=== PATIENT | male | born 1955 | race Caucasian/White ===

== ENCOUNTER 2017-02-03 18:42 | Inpatient (IN) ==
[2017-02-03] MEDS ORDERED: Ipratropium/Albuterol Neb 3 ML IH ONE (19:09)
[2017-02-03 19:21] LABS: Basophils # 0.1 K/mcL (0.0-0.2); Basophils % 0.4 %; Eosinophils # 0.3 K/mcL (0.0-0.6); Eosinophils % 1.8 %; Hemoglobin 15.7 g/dL (12.9-16.9); Immature Granulocytes % 0.8 % (0-4); Lymphocytes # 2.4 K/mcL (0.6-4.6); Lymphocytes % 15.7 %; Mean Corpuscular HGB Conc 33.4 g/dL (31.6-35.5); Mean Corpuscular Hemoglobin 30.3 pg (28.0-33.3); Mean Corpuscular Volume 90.6 fL (83.0-100.0); Mean Platelet Volume 10.1 fL (9.4-12.4); Monocytes # 0.9 K/mcL (0.0-1.3); Monocytes % 6.3 %; Neutrophils # 11.3 K/mcL (1.6-8.9); Platelet Count 218 K/mcL (140-400); Red Blood Count 5.19 M/mcL (4.19-5.50); Red Cell Distribution Width 12.9 % (11.5-14.5)
--- NOTE | 2017-02-03 19:26 | Emergency Department Note ---
Disposition Clinical Impression: COPD exacerbation Disposition: Admitted As Inpatient Condition: Good Time of Disposition: 22:03 General Adult HPI - General Chief complaint: ED Chest Pain Stated complaint: CP/MCKEE Time Seen by Provider: 02/03/17 18:45 Source: patient, EMS Mode of arrival: EMS Limitations: no limitations Nursing Notes Reviewed: Yes Vital Signs Reviewed: Yes - History of Present Illness HPI Narrative: 61-year-old male presenting to the emergency department via EMS for chief complaint of headache and chest pain. Patient states he woke up with a headache and that this is the worst headache he has had. He has had headaches in the past but not this bad. This headache has progressively been getting worse throughout the day. He has not tried anything for treatment at home. Patient also states he has subjective facial numbness. Patient is also complaining of chest pain. He states around 2:00 this afternoon he started getting right sided chest pain radiating down the right arm. Patient denies that placement or CABG. Does have peripheral vascular disease. No new focal neurological deficits at this time. Patient also states he has had increased work of breathing for the Pain Scale: 9 - Related Data Home Medications Medication Instructions Recorded Confirmed Albuterol Sulfate [Proair Hfa] 2 puff IH Q4H PRN 08/28/15 02/03/17 Amitriptyline [Elavil] 25 mg PO HS 08/28/15 02/03/17 Aspirin [Adult Low Dose Aspirin EC] 81 mg PO DAILY 08/28/15 02/03/17 Budesonide/Formoterol 160/4.5 2 puff IH BIDR 08/28/15 02/03/17 [Symbicort 160/4.5] Docusate Sodium [Colace] 200 mg PO BID 08/28/15 02/03/17 Esomeprazole Magnesium [Nexium] 40 mg PO DAILY 08/28/15 02/03/17 Gabapentin [Neurontin] 600 mg PO QID 08/28/15 02/03/17 Insulin ASPART [Novolog Flexpen] 0 unit SQ TIDWM 08/28/15 02/03/17 Insulin Glargine,Hum.rec.anlog 60 unit SQ HS 08/28/15 02/03/17 [Lantus Solostar] Ipratropium/Albuterol Sulfate 2 puff IH BID 08/28/15 02/03/17 [Combivent Respimat Inhal [place]] Magnesium Oxide [Mgo] 400 mg PO DAILY 08/28/15 02/03/17 Metoprolol [Lopressor] 50 mg PO BID 08/28/15 02/03/17 Montelukast [Singulair] 10 mg PO HS 08/28/15 02/03/17 Oxygen 3 l IH AD 08/28/15 02/03/17 hydroCHLOROthiazide 25 mg PO DAILY 08/28/15 02/03/17 [Hydrochlorothiazide] metFORMIN [Glucophage] 1,000 mg PO BIDWM 08/28/15 02/03/17 DULoxetine [Cymbalta] 90 mg PO DAILY 12/08/15 02/03/17 Atorvastatin [Lipitor] 40 mg PO HS 02/03/17 02/03/17 Ipratropium/Albuterol Neb [Duoneb] 3 ml IH Q4H PRN 02/03/17 02/03/17 OxyCODONE/APAP 10/325 [Percocet 1 each PO 5XD 02/03/17 02/03/17 10/325 MG] Previous Rx's Medication Instructions Recorded Potassium Chloride 10 meq PO BIDWM #30 tab.er.prt 09/01/15 Allergies Allergy/AdvReac Type Severity Reaction Status Date / Time Hydromorphone [From Dilaudid] Allergy Rash Verified 02/03/17 21:40 morphine Allergy Itching Verified 04/17/16 18:53 ropinirole [From Requip] Allergy Difficulty Verified 04/17/16 18:53 Breathing All systems ED: reviewed and negative except as stated. Constitutional: Denies: fever, chills, weakness Eyes: Reports: as per HPI ENT ED: Reports: as per HPI Cardiovascular: Reports: chest pain. Denies: palpitations, dyspnea on exertion Respiratory: Reports: cough, wheezes Gastrointestinal: Denies: abdominal pain, nausea, vomiting Genitourinary: Reports: as per HPI Musculoskeletal: Reports: as per HPI Integumentary: Reports: as per HPI Neurological: Reports: headache. Denies: weakness, numbness, paresthesias Psychiatric: Reports: as per HPI Endocrine: Reports: as per HPI Hematological/Lymphatic: Reports: as per HPI Allergic/Immunologic: Reports: as per HPI Past Medical History - Past Medical History Medical history: Reports: CHF, COPD, coronary artery disease, diabetes, GERD, hyperlipidemia, hypertension, myocardial infarction, peripheral artery disease, other Surgical history: Reports: other Psychiatric history: Reports: anxiety, depression - Social History Smoking Status: Current every day smoker Smokeless Tobacco Status: No Alcohol use: Reports: rarely Drug use: Reports: none Physical Exam - General Limitations: no limitations General appearance: alert, in no apparent distress - Head Head exam: atraumatic, normocephalic - Eye Eye exam: Present: normal appearance - Neck Neck exam: Present: normal inspection - Chest Chest inspection: Present: normal inspection, symmetric chest wall rise. Absent : tenderness, rash - Respiratory Respiratory exam: Present: wheezes, prolonged expiratory phase. Absent: accessory muscle use - Cardiovascular Cardiovascular exam: Present: regular rate, normal rhythm, normal heart sounds - Abdominal Exam Abdominal exam: Present: soft, Non-Tender - Extremities Exam Extremities exam: Present: normal inspection, full ROM - Neurological Exam Neurological exam: Present: alert, oriented X3, CN II-XII intact, other ( Cerebellar exam within normal limits sensation and motor strength intact.) - Psychiatric Psychiatric exam: Present: normal affect, normal mood - Skin Skin exam: Present: warm, intact Course Course Narrative: 61-year-old male presented to the emergency department with multiple chief complaints including chest pain, headache, increased shortness of breath. We will complete a chest pain workup including EKG, chest x-ray, troponin. We will also obtain a CT of the head without contrast. We also provide the patient with 3 [id number]-xf-[id number] DuoNeb abscess on physical exam patient is diffusely wheezing. We will then reevaluate the patient to determine disposition. - Reevaluation(s) Reevaluation #1: Upon reevaluation the patient's oxygen saturations are at 86%. Patient states he feels slightly better after the duo nebs but oxygen saturations are significantly lower than his baseline. We have decided to admit the patient for COPD exacerbation. The physician Dr. Cunningham accepted the patient. Time: 22:02 Vital Signs Temperature 98 F 02/03/17 18:47 Pulse Rate 88 02/03/17 18:47 Respiratory Rate 18 02/03/17 18:47 Blood Pressure 115/77 02/03/17 18:47 O2 Sat by Pulse Oximetry 92 02/03/17 18:47 Temperature 97.7 F 02/03/17 23:41 Pulse Rate 98 02/03/17 23:41 Respiratory Rate 20 02/04/17 00:05 Blood Pressure 107/55 02/03/17 23:41 O2 Sat by Pulse Oximetry 93 02/04/17 00:05 Oxygen Delivery Oxygen Delivery Nasal Cannula Medical Decision Making - Medical Records Medical records reviewed: Yes I reviewed the patient's medical records. - Lab Data Lab results reviewed: Yes I reviewed the patient's lab results. Result diagrams: 02/03/17 19:15 02/03/17 19:15 Lab Results 02/03/17 02/03/17 02/03/17 Range/Units 19:15 19:15 19:15 WBC 15.0 H (4.3-11.1) K/mcL RBC 5.19 (4.19-5.50) M/mcL Hgb 15.7 (12.9-16.9) g/dL Hct 47.0 (37.5-50.1) % MCV 90.6 (83.0-100.0) fL MCH 30.3 (28.0-33.3) pg MCHC 33.4 (31.6-35.5) g/dL RDW 12.9 (11.5-14.5) % Plt Count 218 (140-400) K/mcL MPV 10.1 (9.4-12.4) fL Immature Gran % 0.8 (0-4) % Seg Neutrophils % 75.0 % Lymphocytes % 15.7 % Monocytes % 6.3 % Eosinophils % 1.8 % Basophils % 0.4 % Neutrophils # 11.3 H (1.6-8.9) K/mcL Lymphocytes # 2.4 (0.6-4.6) K/mcL Monocytes # 0.9 (0.0-1.3) K/mcL Eosinophils # 0.3 (0.0-0.6) K/mcL Basophils # 0.1 (0.0-0.2) K/mcL Sodium 136 (136-145) mEq/L Potassium 4.0 (3.5-4.5) mEq/L Chloride 102 (98-109) mEq/L Carbon Dioxide 26 (19-29) mEq/L BUN 14 (8-26) mg/dL Creatinine 0.80 (0.72-1.25) mg/dL Est GFR ( Amer) > 60 (> 60) Est GFR (Non-Af Amer) > 60 (> 60) BUN/Creatinine Ratio 18 (6-26) Glucose 215 H (70-99) mg/dL Calculated Osmolality 289 (280-300) Calcium 8.3 L (8.6-10.8) mg/dL Troponin I 0.03 (0-0.03) ng/mL - Radiology Data Radiology results reviewed: Yes I reviewed the patient's radiology results. Attestation Statement - Attestation Attestation: I examined this patient and my medical decision-making was reviewed with the Resident Physician, Dr. Colbert. I agree with the documented findings, disposition and treatment plan as described except to the extent set forth below. Patient is a 61-year-old white male who is brought in by his family tonight for complaints of a 2 day history of gradually worsening shortness of breath, cough and generalized myalgias. Patient's also complained today after frequent bouts of coughing of generalized headache. Patient denies any visual changes, no dizziness or vertigo, no focal symptoms of weakness or numbness or difficulty with ambulation. Patient has clear speech and no facial droop. Patient denies any chest pain pressure or heaviness with this cough and shortness of breath, he is on 2-1/2 L of home O2 at all times for his COPD and at that rate is hypoxic on arrival with room air sats around 90%. Patient states that with his frequent coughing and shortness of breath he has noticed some numbness and tingling in his cheeks bilaterally. He had no posttussive emesis, no abdominal pain or flank pain, no other associated symptoms. I agree with patient's physical exam findings as documented. Patient was placed on quality assurance monitor and continuous pulse ox, IV saline well was established he was placed on 2-1/2 L nasal cannula oxygen breathing treatments and steroids were initiated. Labs were drawn and sent and patient had portable chest x-ray obtained. Patient was also sent for CT head due to the complaints of headache although suspicious that this was exacerbated by his frequent coughing. Prior to patient leaving the department he did receive breathing treatments. Patient did get improvement of his headache following pain medicine administration but still complaining of shortness of breath. On reassessment patient's sats on 2-1/2 L were 88%. Patient was turned up to 3 L nasal cannula. Patient CT head showed no acute intracranial process, did show some mild soft tissue swelling of the scalp in the left parietal area. I did explain this to the family and asked about this and the daughter states that approximately 3 weeks ago he did fall at home in the bathroom and strike his head although there is no palpable contusions hematomas or any physical sign of injury at this time. They felt that this may be due to his recent fall. Patient's chest x-ray is unremarkable for any infiltrates consolidation or edema. Patient's labs are unremarkable, mild leukocytosis with left shift, hyperglycemia without acidosis, and a negative troponin. Patient will be admitted for COPD exacerbation and headache. Case was discussed with the hospitalist who accepted the patient for admission for further evaluation and treatment.
[2017-02-03 19:39] LABS: BUN/Creatinine Ratio 18 (6-26); Blood Urea Nitrogen 14 mg/dL (8-26); Calcium 8.3 mg/dL (8.6-10.8); Carbon Dioxide 26 mEq/L (19-29); Chloride 102 mEq/L (98-109); Glucose 215 mg/dL (70-99); Osmolality,Calculated 289 (280-300); Sodium 136 mEq/L (136-145); eGFR For African Americans > 60 (> 60); eGFR For Non-African Americans > 60 (> 60)
[2017-02-03] MEDS ORDERED: Ondansetron 4 MG/2 ML VIAL IVP ONE (19:45)
[2017-02-03] MEDS ORDERED: *HR* HYDROmorphone (PF) 1 MG/ML SYRINGE IVP ONE (19:45)
[2017-02-03] MEDS ORDERED: methylPREDNISolone 125 MG in 0.9 % Sodium Chloride 100 ML IVPB ONE (20:55)
[2017-02-03] MEDS ORDERED: Metoclopramide 10 MG/2 ML VIAL IVP ONE (21:09)
[2017-02-03] MEDS ORDERED: methylPREDNISolone 125 MG/2 ML VIAL IVP ONE (21:15)
--- NOTE | 2017-02-03 22:09 | Internal Med History&Physical ---
Date of Encounter: 02/04/17 Time of Encounter: 22:02 Assessment and Plan (1) Severe sepsis Current visit: Yes Status: Acute 3 SIRS criteria of WBC 20.1, HR 113, RR 22 Lactic acid 3.8, repeat Lactic pending Blood, urine, and sputum cultures pending Sepsis bolus given, cautious hydration given h/o CHF Started on Rocephin and Levaquin to cover for HAP Continue to monitor (2) Acute exacerbation of chronic obstructive airways disease Current visit: Yes Status: Acute Continue IV steroids, Duonebs, and Levoquin. Mucinex CXR negative (3) Facial numbness Current visit: Yes Status: Acute CT brain reveals subcutaneous soft tissue swelling at the left parietal scalp. No acute intracranial abnormality. 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 Minimal parenchymal volume loss. Minimal chronic microvascular disease. Sinus mucosal disease. Will obtain records from [facility] for recent CVA work up for facial numbness (4) Chest pain Current visit: Yes Status: Acute CP at rest relieved with NTG. JORDAN score 4 Initial troponin negative. Trend serial troponins EKG shows HR 85, 1st degree AV blick, incomplete RBBB, no STEMI Echo pending Qualifiers: Chest pain type: unspecified Qualified Code(s): R07.9 - Chest pain, unspecified (5) TU treated with BiPAP Current visit: No Status: Chronic Continue Bipap qhs (6) CHF (congestive heart failure) Current visit: No Status: Chronic Not in acute exacerbation. No rales, S3, or leg edema. Echo pending Qualifiers: Congestive heart failure type: unspecified congestive heart failure type Congestive heart failure chronicity: unspecified congestive heart failure chronicity Qualified Code(s): I50.9 - Heart failure, unspecified (7) CAD (coronary artery disease) Current visit: Yes Status: Chronic Continue home meds Qualifiers: Coronary Disease-Associated Artery/Lesion type: unspecified vessel or lesion type [place] vs. transplanted heart: [place] heart Associated angina: with stable angina Qualified Code(s): I25.118 - Atherosclerotic heart disease of [place] coronary artery with other forms of angina pectoris (8) Hypertension Current visit: No Status: Chronic Continue home meds Qualifiers: Hypertension type: essential hypertension Qualified Code(s): I10 - Essential (primary) hypertension (9) DM2 (diabetes mellitus, type 2) Current visit: No Status: Chronic Prior partial right foot amputation HGB a1c pending Continue SSI Qualifiers: Diabetes mellitus complication status: with circulatory complication Diabetes mellitus complication detail: with other circulatory complications Diabetes mellitus skilled nursing insulin use: with skilled nursing use Qualified Code(s) : E11.59 - Type 2 diabetes mellitus with other circulatory complications; 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 (10) Peripheral neuropathy Current visit: Yes Status: Acute Continue home meds Qualifiers: Peripheral neuropathy type: polyneuropathy associated with critical illness Qualified Code(s): G62.81 - Critical illness polyneuropathy (11) Hypomagnesemia Current visit: Yes Status: Acute Mag 1.4 Supplement Mag Continue to monitor (12) Tobacco abuse Current visit: No Status: Acute Tobacco cessation discussed Nicotine patch ordered (13) Obesity (BMI 30-39.9) Current visit: Yes Status: Acute (14) DVT prophylaxis Current visit: Yes Status: Acute Internal Medicine - H&P: HPI Chief complaint: CP Admitted From: Home Plans for Post Hospital Care: Home History of present illness: Mr. Bran is a 61 year old male with a PMH of COPD with home O2 dependence, TU with BiPap at night, CAD, CHF, DM, tobacco dependence, and recent admission at [facility] for right sided facial numbness presented from home c/o headache that woke him up this morning and right sided CP. The CP is intermittent, 9/10 severity, and radiates to his right arm with right arm tingling/numbness. Patient reports improvement in CP after taking NTG. Nothing made CP worse. Patient also reports associated SOB at rest, productive cough, and wheezing. Patient denies fever, chills, palpitations, abd pain, N/V/D, leg edema, vision changes, weakness, paralysis, slurred speech, or recent illness. Daughter states that approximately 3 weeks ago he fell at home in the bathroom and hit his head although there are no physical sign of injury at this time. In the ED, oxygen saturation was 86% after multiple Duoneb treatments. Patient had a rash after Dilaudid was administered for pain in the ED and he was given Benadryl. Past Med Surg Social Fam HX - Past Medical History Medical history: CHF, COPD, coronary artery disease, diabetes, GERD, hyperlipidemia, hypertension, myocardial infarction, peripheral artery disease, other Psychiatric history: anxiety, depression - Past Surgical History Surgical History: other (partial right foot amputation, colectomy, ostomy reversal) - Social History Smoking Status: Current every day smoker Smokeless Tobacco Status: No Alcohol use: rarely Drug use: none Current living situation: Home, With Family - Family History Mother Adopted: Yes Living Status: Hx Family Cardiac Disorders: Yes ([place]) Father Living Status: Hx Family Endocrine Disorder: Yes (ADA) Internal Medicine - H&P: Meds Albuterol Sulfate [Proair Hfa] 2 puff IH Q4H PRN 08/28/15 [History] Amitriptyline [Elavil] 25 mg PO HS 08/28/15 [History] Aspirin [Adult Low Dose Aspirin EC] 81 mg PO DAILY 08/28/15 [History] Budesonide/Formoterol 160/4.5 [Symbicort 160/4.5] 2 puff IH BIDR 08/28/15 [ History] Docusate Sodium [Colace] 200 mg PO BID 08/28/15 [History] Esomeprazole Magnesium [Nexium] 40 mg PO DAILY 08/28/15 [History] Gabapentin [Neurontin] 600 mg PO QID 08/28/15 [History] Insulin ASPART [Novolog Flexpen] 0 unit SQ TIDWM 08/28/15 [History] Insulin Glargine,Hum.rec.anlog [Lantus Solostar] 60 unit SQ HS 08/28/15 [History ] Ipratropium/Albuterol Sulfate [Combivent Respimat Inhal [place]] 2 puff IH BID [History] Magnesium Oxide [Mgo] 400 mg PO DAILY 08/28/15 [History] Metoprolol [Lopressor] 50 mg PO BID 08/28/15 [History] Montelukast [Singulair] 10 mg PO HS 08/28/15 [History] Oxygen 3 l IH AD 08/28/15 [History] hydroCHLOROthiazide [Hydrochlorothiazide] 25 mg PO DAILY 08/28/15 [History] metFORMIN [Glucophage] 1,000 mg PO BIDWM 08/28/15 [History] Potassium Chloride 10 meq PO BIDWM #30 tab.er.prt 09/01/15 [Rx] DULoxetine [Cymbalta] 90 mg PO DAILY 12/08/15 [History] Atorvastatin [Lipitor] 40 mg PO HS 02/03/17 [History] Ipratropium/Albuterol Neb [Duoneb] 3 ml IH Q4H PRN 02/03/17 [History] OxyCODONE/APAP 10/325 [Percocet 10/325 MG] 1 each PO 5XD 02/03/17 [History] 3 Allergy/AdvReac Type Severity Reaction Status Date / Time Hydromorphone [From Dilaudid] Allergy Rash Verified 02/03/17 21:40 morphine Allergy Itching Verified 04/17/16 18:53 ropinirole [From Requip] Allergy Difficulty Verified 04/17/16 18:53 Breathing All Systems PM: A 10-system review of systems was performed and is negative for pertinent findings except as documented above in the HPI. - Constitutional Constitutional: no chills, no excessive sweating, no fatigue, no fever(s), no weakness, no weight gain, no weight loss - EENT Eyes: no change in vision Nose, mouth and throat: no nasal congestion, no sore throat - Cardiovascular Cardiovascular ROS IM: chest pain, dyspnea, no edema, no palpitations, no syncope - Respiratory Respiratory: cough, wheezing, excessive phlegm production, no chest congestion, no change in phlegm color - Gastrointestinal Gastrointestinal: nausea, vomiting, no abdominal pain, no diarrhea, no heartburn - Genitourinary Genitourinary ROS male: no difficulty urinating, no urinary frequency, no urinary urgency - Musculoskeletal Musculoskeletal ROS IM: back pain, numbness, tingling - Integumentary Integumentary IM: rash, no erythema - Neurological Neurological ROS: headache(s), numbness, tingling, no confusion, no dizziness, no loss of vision, no weakness - Psychiatric Psychiatric: no anxiety, no depression - Endocrine Endocrine IM: no polydipsia, no polyphagia, no polyuria - Allergic/Immunologic Allergic/Immunologic: uticaria, wheezing, no tongue swelling, no throat swelling , no lip swelling - Constitutional Vitals: Temp Pulse Resp BP Pulse Ox 98 F 84 16 119/98 93 02/03/17 18:47 02/03/17 21:22 02/03/17 21:22 02/03/17 21:22 02/03/17 21:22 General appearance: Present: cooperative, mild distress, A&O X 3, obese, answers questions appropriately - Head Head exam: Present: normocephalic Additional comments: mild erythema over left anterior scalp - Eye Eye exam: Present: EOMI, PERRL - ENT ENT exam: Present: mucous membranes moist - Expanded ENT Exam Throat exam: Present: post pharyngeal erythema - Neck Neck exam general surgery: Present: normal inspection, supple - Respiratory Respiratory exam: Present: decreased breath sounds, wheezes. Absent: accessory muscle use, respiratory distress, rhonchi - Cardiovascular Cardiovascular exam: Present: RRR, +S1, +S2 - GI/Abdominal GI/Abdominal exam: Present: distended, normal bowel sounds, soft, tenderness ( diffuse). Absent: guarding - Extremities Exam Extremities exam: Present: warm. Absent: normal inspection (prior partial right foot amputation), pedal edema, tenderness - Neurological Exam Neurological exam: Present: alert, CN II-XII intact, oriented X3, strengths equal and symetr throughout Additional comments: subjective right facial numbness - Psychiatric Psychiatric exam: Present: normal affect, normal mood - Skin Skin exam: Present: dry, erythema, intact, warm. Absent: rash, urticaria Internal Med - H&P Results - Labs CBC & Chem 7: 02/04/17 00:49 02/04/17 00:49 - EKG Data -: EKG Interpreted by Myself EKG shows normal: sinus rhythm Rate: normal (HR 85, 1st degree AV blick, incomplete RBBB, no STEMI) - Impressions ITS Impressions Chest X-Ray 02/03/17 19:01 IMPRESSION: No acute process. D/ / Kayden June MD / Kayden June MD Interpreting Provider: Kayden June MD Head CT 02/03/17 19:08 IMPRESSION: Subcutaneous soft tissue swelling at the left parietal scalp. No acute intracranial abnormality. Small old infarction in the left frontal lobe, stable. Minimal parenchymal volume loss. Minimal chronic microvascular disease. Sinus mucosal disease. D/ / Allan Thomason MD / Allan Thomason MD Interpreting Provider: Allan Thomason MD
--- NOTE | 2017-02-03 22:36 | Event Note ---
Date of Encounter: 02/03/17 Time of Encounter: 22:32 Patient seen and examined with medical biller. Acute COPD exacerbation. Will start on IV steroids nebulizer treatment and antibiotics. No pneumonia on chest x-ray. He complained of numbness in the right face and right arm without any focal weakness. CT scan of the head shows no acute stroke or intracranial bleed. He was just hospitalized that [facility] for stroke like symptoms. We get outside records. Patient is full code. Inpatient admission
[2017-02-03] MEDS ORDERED: Nitroglycerin 0.4 MG TAB.SUBL SL ONE (22:45)
[2017-02-03] MEDS ORDERED: Aspirin 325 MG TABLET PO ONE (22:49)
[2017-02-03] MEDS ORDERED: Ondansetron 4 MG/2 ML VIAL IVP PRN (22:49)
[2017-02-03] MEDS ORDERED: *HR* Dextrose 50 % in Water (Syg) 50 ML SYRINGE IVP PRN (23:07)
[2017-02-03] MEDS ORDERED: D5% in Water 1,000 ML IVC PRN (23:07)
[2017-02-03] MEDS ORDERED: Dextrose Gel 15 GM PO PRN ×2 (23:07)
[2017-02-03] MEDS ORDERED: Naloxone 0.4 MG/ML INJ IVP PRN (23:13)
[2017-02-03] MEDS ORDERED: Ipratropium/Albuterol Neb 3 ML IH PRN (23:14)
[2017-02-03] MEDS: *HR* OxyCODONE/APAP 10/325 TABLET PO SCH (23:53)
[2017-02-03] MEDS: methylPREDNISolone 125 MG/2 ML VIAL IVP SCH (23:55)
[2017-02-03] MEDS: Insulin LISPRO 300 UNITS/3 ML VIAL SQ SCH (23:57)
[2017-02-03] MEDS: Insulin DETEMIR 100 UNIT/ML X5UNITS SQ SCH (23:59)
[2017-02-04] MEDS: Ipratropium/Albuterol Neb 3 ML IH SCH ×7 (00:04→23:12)
[2017-02-04 00:55] LABS: Basophils % 0.2 %; Eosinophils % 0.1 %; Hematocrit 48.9 % (37.5-50.1); Hemoglobin 16.3 g/dL (12.9-16.9); Immature Granulocytes % 0.8 % (0-4); Lymphocytes # 0.6 K/mcL (0.6-4.6); Lymphocytes % 3.2 %; Mean Corpuscular HGB Conc 33.3 g/dL (31.6-35.5); Mean Corpuscular Hemoglobin 30.3 pg (28.0-33.3); Mean Corpuscular Volume 90.9 fL (83.0-100.0); Mean Platelet Volume 10.3 fL (9.4-12.4); Monocytes # 0.3 K/mcL (0.0-1.3); Monocytes % 1.4 %; Neutrophils # 18.9 K/mcL (1.6-8.9); Platelet Count 207 K/mcL (140-400); Red Blood Count 5.38 M/mcL (4.19-5.50); Red Cell Distribution Width 12.9 % (11.5-14.5); Segmented Neutrophils % 94.3 %
[2017-02-04 01:00] LABS: INR 1.2; Prothrombin Time 12.8 Seconds (9.4-12.1)
[2017-02-04 01:10] LABS: Alanine Aminotransferase 21 Units/L (0-55); Albumin 2.8 g/dL (3.5-5.0); Alkaline Phosphatase 78 Units/L (38-126); Aspartate Amino Transferase 14 Units/L (5-34); BUN/Creatinine Ratio 17 (6-26); Bilirubin,Total 0.6 mg/dL (0.2-1.2); Blood Urea Nitrogen 15 mg/dL (8-26); Calcium 8.2 mg/dL (8.6-10.8); Carbon Dioxide 22 mEq/L (19-29); Chloride 100 mEq/L (98-109); Globulin 2.9 g/dL (2.4-3.5); Glucose 421 mg/dL (70-99); Osmolality,Calculated 293 (280-300); Potassium 4.4 mEq/L (3.5-4.5); Sodium 132 mEq/L (136-145); Total Protein 5.7 g/dL (6.0-8.3); eGFR For African Americans > 60 (> 60); eGFR For Non-African Americans > 60 (> 60)
[2017-02-04] MEDS ORDERED: 0.9 % Sodium Chloride 1,000 ML IVC ONE (01:22)
[2017-02-04 01:26] LABS: Hemoglobin A1C 8.8 %
[2017-02-04] MEDS ORDERED: Magnesium Sulfate 2 GM in D5% in Water 100 ML IVPB ONE ×2 (01:26→12:02)
[2017-02-04] MEDS: Nicotine 21 MG PATCH.TD24 TD SCH ×2 (03:20→08:53)
[2017-02-04] MEDS ORDERED: Famotidine 20 MG/2 ML VIAL IVP SCH (06:00)
[2017-02-04] MEDS: methylPREDNISolone 125 MG/2 ML VIAL IVP SCH ×4 (06:03→17:45)
[2017-02-04] MEDS: *HR* Heparin 5,000 UNIT/ML VIAL SQ SCH ×4 (06:04→20:26)
[2017-02-04] MEDS: 0.9 % Sodium Chloride 1,000 ML IVC SCH ×2 (06:12→15:10)
[2017-02-04] MEDS: *HR* OxyCODONE/APAP 10/325 TABLET PO SCH (06:12)
[2017-02-04] MEDS: Gabapentin 300 MG CAPSULE PO SCH ×4 (08:51→20:16)
[2017-02-04] MEDS: Magnesium Oxide 400 MG TABLET PO SCH (08:52)
[2017-02-04] MEDS: Aspirin Enteric Coated 81 MG Tablet PO SCH (08:53)
[2017-02-04] MEDS: Insulin LISPRO 300 UNITS/3 ML VIAL SQ SCH ×7 (08:54→21:02)
[2017-02-04] MEDS ORDERED: Aspirin 81 MG TAB.CHEW PO SCH (09:00)
[2017-02-04] MEDS ORDERED: hydroCHLOROthiazide 25 MG TABLET PO SCH (09:00)
[2017-02-04] MEDS ORDERED: GuaiFENesin/Dextromethorphan TABLET PO SCH (09:00)
[2017-02-04] MEDS ORDERED: Budesonide/Formoterol 160/4.5 MDI IH SCH (10:00)
[2017-02-04] MEDS ORDERED: Ipratropium/Albuterol Neb 3 ML IH SCH (10:00)
[2017-02-04] MEDS: *HR* OxyCODONE/APAP 10/325 TABLET PO PRN ×4 (10:58→23:17)
[2017-02-04] MEDS: Levofloxacin 750 MG/150 ML 750 MG/150 ML BAG IVPB SCH (10:59)
[2017-02-04] MEDS ORDERED: methylPREDNISolone 125 MG/2 ML VIAL IVP SCH ×2 (12:02→18:00)
--- NOTE | 2017-02-04 13:58 | Cardiology Consult Note ---
<Anisa Méndez - Last Filed: 02/04/17 15:25> Date of Encounter: 02/04/17 Time of Encounter: 13:30 Assessment and Plan (1) Sepsis Current Visit: No Status: Acute Per cardiology: -Being treated as sepsis. On IV ATB. -WBC 15 on admission, today 20. -Lactic acid 3.8 on admission. -Known wound on right foot. -WOund culture positive for MRSA 12/2016. -Blood cultures pending. -Management per primary service. Qualifiers: Sepsis type: sepsis due to unspecified organism Qualified Code(s): A41.9 - Sepsis, unspecified organism (2) Chest pain Current Visit: Yes Status: Acute Per cardiology: -Patient reports chest pain at rest over the past couple of weeks. Denies exertional symptoms. -Troponins negative x4. -Denies current chest pain. -ECG with no ischemic changes. -Abnormal echocardiogram with LVEf 50%, mid inferior and basal inferior kowalski hypokinetic. -Recommend LHC when clinically able due to sepsis, wound infection. No urgent need for LHC due to no active chest pain, no ECG changes, troponins negative x4. -Will follow in outpatient setting. Qualifiers: Chest pain type: unspecified Qualified Code(s): R07.9 - Chest pain, unspecified (3) CAD (coronary artery disease) Current Visit: Yes Status: Chronic Per cardiology: -KNown CAD with [facility] 2013 with 30% stenosis proximal LAD, 40-50% mid circumflex, 40% OM1, 30% proximal RCA, 40% mid RCA, 30% distal RCA. -Denies current chest pain, -ECG with no ischemic changes. -Echo with LVEF 50%, mild concentric LVH, mild diastolic dysfunction, mildly dilated left atrium, mild , mid inferior and basal inferior kowalski hypokinetic. Previous EF 55-60%. -On asa and statin. Beta ruthie held per primary service. -Will follow in outpatient setting. Qualifiers: Coronary Disease-Associated Artery/Lesion type: [place] artery [place] vs. transplanted heart: [place] heart Associated angina: without angina Qualified Code(s): I25.10 - Atherosclerotic heart disease of [place] coronary artery without angina pectoris (4) Tobacco abuse Current Visit: No Status: Chronic Per cardiology: -Known tobacco abuse with smoking 1.5 ppd for 40 years. - I spent 3 minutes reviewing smoking cessation education with patient. Discussion w patient/family: The assessment and plan as outlined above was discussed with the patient who expressed understanding and agreement. All questions were answered. Thank you for involving us in the care of your patient. Please call with any questions. Discussed and reviewed with . History of Present Illness Consult date: 02/04/17 Requesting physician: Jovany Sandhu Consult reason: chest pain Chief complaint: headache, facial numbness History of present illness: Mr. Bran is a 61 year old male with a relevant past medical history of HTN, hyperlipidemia, DM, COPD, PAD with athrectomy, depression, anxiety, TU, obesity , amputations, CAD with reported PCI, CHF. Patient presented to [facility] with complaints of facial numbness and headaches. Patient reports he had these symptoms one week ago and was sent to [place]. Patient reports had MRI and CT scans at [place]. Per pateint, [place] stated he had old CVA, but no acute CVA. Cardiology has been asked to see and evaluate patient due to chest pain and abnormal echocardiogram. Patient reports has been having intermittent chest pain over the last couple of weeks. Patient states pain occurs at rest. Denies aggravating or alleviating factors. Patient denies exertional chest pain, however states he is not very active at home. Patient states he cannot walk about 10 feet without having to rest due to shortness of breath. Patient reports shortness of breath, however states this is about his baseline for the past several years. Patient reports fatigue, however states he has had chronic fatigue since hernia surgery in 1999. Of note, patient is being treated for sepsis. Has elevated WBC and patient has open wound on foot. Patient reports foot wound has been draining. Past Med Surg Social Fam HX - Past Medical History Attestation: Yes The following information was validated with the patient. Source: patient, old records reviewed Medical history: cancer, CHF, COPD, coronary artery disease, diabetes, GERD, hyperlipidemia, hypertension, malignancy, myocardial infarction, peripheral artery disease, other Psychiatric history: anxiety, depression - Past Surgical History Surgical History: herniorrhaphy, other - Social History Smoking Status: Current every day smoker Packs per day: 1.5 Smokeless Tobacco Status: No Alcohol use: none Drug use: none - Family History Mother Adopted: Yes Living Status: Hx Family Cardiac Disorders: Yes Father Living Status: Hx Family Endocrine Disorder: Yes (ADA) Medications and Allergies Albuterol Sulfate [Proair Hfa] 2 puff IH Q4H PRN 08/28/15 [History] Amitriptyline [Elavil] 25 mg PO HS 08/28/15 [History] Aspirin [Adult Low Dose Aspirin EC] 81 mg PO DAILY 08/28/15 [History] Budesonide/Formoterol 160/4.5 [Symbicort 160/4.5] 2 puff IH BIDR 08/28/15 [ History] Docusate Sodium [Colace] 200 mg PO BID 08/28/15 [History] Esomeprazole Magnesium [Nexium] 40 mg PO DAILY 08/28/15 [History] Gabapentin [Neurontin] 600 mg PO QID 08/28/15 [History] Insulin ASPART [Novolog Flexpen] 0 unit SQ TIDWM 08/28/15 [History] Insulin Glargine,Hum.rec.anlog [Lantus Solostar] 60 unit SQ HS 08/28/15 [History ] Ipratropium/Albuterol Sulfate [Combivent Respimat Inhal [place]] 2 puff IH BID [History] Magnesium Oxide [Mgo] 400 mg PO DAILY 08/28/15 [History] Metoprolol [Lopressor] 50 mg PO BID 08/28/15 [History] Montelukast [Singulair] 10 mg PO HS 08/28/15 [History] Oxygen 3 l IH AD 08/28/15 [History] hydroCHLOROthiazide [Hydrochlorothiazide] 25 mg PO DAILY 08/28/15 [History] metFORMIN [Glucophage] 1,000 mg PO BIDWM 08/28/15 [History] Potassium Chloride 10 meq PO BIDWM #30 tab.er.prt 09/01/15 [Rx] DULoxetine [Cymbalta] 90 mg PO DAILY 12/08/15 [History] Atorvastatin [Lipitor] 40 mg PO HS 02/03/17 [History] Ipratropium/Albuterol Neb [Duoneb] 3 ml IH Q4H PRN 02/03/17 [History] OxyCODONE/APAP 10/325 [Percocet 10/325 MG] 1 each PO 5XD 02/03/17 [History] 3 Allergy/AdvReac Type Severity Reaction Status Date / Time morphine Allergy Itching Verified 04/17/16 18:53 ropinirole [From Requip] Allergy Difficulty Verified 04/17/16 18:53 Breathing All Systems Review: A 10-system review of systems was performed and is negative for pertinent findings except as documented above in the HPI. - Constitutional Constitutional: fatigue - Cardiovascular Cardiovascular: as per HPI, chest pain at rest, dyspnea on exertion - Integumentary Integumentary: other (Foot wound) Physical Examination Vital Signs, Last 4 Hours Temp Pulse Resp BP Pulse Ox 02/04/17 11:14 18 91 02/04/17 11:00 97.8 F 96 20 134/72 92 General: Conversant, No Apparent Distress HEENT: Atraumatic, Normocephaly, Mucus Membranes Moist Neck: No JVD, Normal carotid pulses Cardiac: Reg Rate and Rhythm, Normal S1 and S2, No Murmur Lungs: Normal Breath Sounds, No Wheeze, Rales, Rhonchi Neuro: Alert and responsive, No focal deficits noted Abdomen: Soft, Non-Tender Skin: No rashes noted on visualized skin Musculoskeletal: No Chest Wall Tenderness Extremities: No Clubbing, No Cyanosis, No Edema, Other (Decreased pulses. Right foot ulcer. ) Results 02/04/17 00:49 02/04/17 00:49 Lab Results Impressions Chest X-Ray 02/03/17 19:01 IMPRESSION: No acute process. D/ / Kayden June MD / Kayden June MD Interpreting Provider: Kayden June MD Head CT 02/03/17 19:08 IMPRESSION: Subcutaneous soft tissue swelling at the left parietal scalp. No acute intracranial abnormality. Small old infarction in the left frontal lobe, stable. Minimal parenchymal volume loss. Minimal chronic microvascular disease. Sinus mucosal disease. D/ / Allan Thomason MD / Allan Thomason MD Interpreting Provider: Allan Thomason MD Echocardiogram 02/04/17 22:49 Impressions: Mild LV systolic dysfunction, LVEF 50%. There is hypokinesis of the basal-mid inferior wall. Mild concentric left ventricular hypertrophy. Mild left ventricular diastolic dysfunction. Normal right ventricular size and function. Mildly dilated left atrium. Mild aortic stenosis. Unable to estimate RVSP due to lack of TR jet. Recommend cardiology consultation due to chest pain with wall motion abnormalities. [email or web address] message sent to ordering physician. Also notified cardiology consult team. Left Ventricular Wall Motion: Rest Echo Findings The mid inferior and basal inferior kowalski were hypokinetic. All other wall segments showed normal motion. Findings: Study Quality * Suboptimal echo windows. ECG Findings * Normal sinus rhythm. Left Ventricle * Mild LV systolic dysfunction, LVEF 50%. There is hypokinesis of the basal-mid inferior wall. * Normal LV chamber size. * Mild concentric left ventricular hypertrophy. * Mild left ventricular diastolic dysfunction. Right Ventricle * Normal right ventricular size and function. Left Atrium * Mildly dilated left atrium. Right Atrium * Normal right atrial size. Aorta * Normally sized aortic root. Pericardium * There is no pericardial effusion present. IVC * The IVC is not well evaluated. Aortic Valve * Mild-moderately calcified aortic valve leaflets. Valve morphology is not well visualized. * Mild aortic stenosis. * No aortic regurgitation. Mitral Valve * Normal mitral valve structure. * No mitral stenosis. * Trace mitral regurgitation. Tricuspid Valve * Normal tricuspid valve structure. * No tricuspid stenosis. * Trace tricuspid regurgitation. * Unable to estimate RVSP due to lack of TR jet. Pulmonic Valve * Pulmonic valve not well visualized. * No pulmonic stenosis. * No pulmonic regurgitation. Active Medications Albuterol/Ipratropium (Duoneb) 3 ml IH Q4H DANTE Stop: 08/05/17 23:31 Last Admin: 02/04/17 11:12 Dose: 3 ml Amitriptyline HCl (Elavil) 25 mg PO HS DANTE Stop: 08/05/17 23:16 Last Admin: 02/03/17 23:53 Dose: 25 mg Aspirin (Aspirin Ec) 81 mg PO DAILY DANTE Stop: 08/06/17 09:01 Last Admin: 02/04/17 08:53 Dose: 81 mg Atorvastatin Calcium (Lipitor) 40 mg PO HS DANTE Stop: 08/05/17 23:16 Last Admin: 02/03/17 23:53 Dose: 40 mg Budesonide/Formoterol Fumarate (Symbicort) 2 puff IH BIDR [facility] PRN Reason: Protocol Stop: 08/06/17 10:01 Last Admin: 02/04/17 07:44 Dose: 2 puff Dextrose/Water (Dextrose 50% (Syg)) 25 ml IVP AD PRN PRN Reason: Hypoglycemia Stop: 08/05/17 23:08 Docusate Sodium (Colace) 200 mg PO BID [facility] PRN Reason: Protocol Stop: 08/06/17 09:01 Last Admin: 02/04/17 08:53 Dose: 200 mg Duloxetine HCl (Cymbalta) 90 mg PO DAILY [facility] Stop: 08/06/17 09:01 Last Admin: 02/04/17 08:52 Dose: 90 mg Gabapentin (Neurontin) 600 mg PO QID [facility] Stop: 08/06/17 09:01 Last Admin: 02/04/17 08:51 Dose: 600 mg Glucagon (Glucagen) 1 mg IM ONCE PRN PRN Reason: Hypoglycemia Stop: 08/05/17 23:08 Glucose (Gluctose) 15 gm PO ONCE PRN PRN Reason: Hypoglycemia Stop: 08/05/17 23:08 Glucose (Gluctose) 30 gm PO ONCE PRN PRN Reason: Hypoglycemia Stop: 08/05/17 23:08 Guaifenesin (Mucinex) 1,200 mg PO BID [facility] Stop: 08/06/17 21:01 Heparin Sodium (Porcine) (Heparin) 5,000 unit SQ Q8HCO [facility] Stop: 08/06/17 06:01 Last Admin: 02/04/17 06:04 Dose: Not Given Dextrose (Dextrose 5%) 1,000 mls @ 100 mls/hr IVC .Q10H PRN PRN Reason: HYPOGLYCEMIA Stop: 08/05/17 23:08 Levofloxacin/Dextrose (Levaquin Premix 750mg/150 Ml) 750 mg in 150 mls @ 100 mls/hr IVPB DAILY [facility] PRN Reason: Protocol Stop: 08/06/17 09:01 Last Infusion: 02/04/17 12:35 Dose: Infused Ceftriaxone Sodium 2,000 mg/ (Dextrose) 100 mls @ 200 mls/hr IVPB DAILY [facility] Stop: 08/06/17 09:01 Last Infusion: 02/04/17 09:30 Dose: Infused Sodium Chloride (0.9 % Sodium Chloride) 1,000 mls @ 125 mls/hr IVC .Q8H [facility] Stop: 02/04/17 21:29 Last Admin: 02/04/17 06:12 Dose: 125 mls/hr Insulin Detemir (Levemir) 28 unit 0.25 unit/kg (28 unit) SQ HS [facility] Stop: 08/05/17 21:01 Last Admin: 02/03/17 23:59 Dose: 28 unit Insulin Human Lispro (Humalog) 8 units 0.08 units/kg (8 units) SQ TIDWM [facility] Stop: 08/06/17 08:01 Last Admin: 02/04/17 12:19 Dose: 8 units Insulin Human Lispro (Humalog) 0 units SQ HS [facility] PRN Reason: Protocol Stop: 08/05/17 23:16 Last Admin: 02/03/17 23:57 Dose: 6 units Insulin Human Lispro (Humalog) 0 units SQ TIDAC [facility] PRN Reason: Protocol Stop: 08/06/17 07:31 Last Admin: 02/04/17 12:20 Dose: 12 units Magnesium Oxide (Mag-Ox) 400 mg PO DAILY [facility] PRN Reason: Protocol Stop: 08/06/17 09:01 Last Admin: 02/04/17 08:52 Dose: 400 mg Methylprednisolone (Solu-Medrol) 60 mg IVP Q12HR [facility] Stop: 08/06/17 12:25 Montelukast Sodium (Singulair) 10 mg PO HS [facility] Stop: 08/06/17 21:01 Naloxone HCl (Narcan) 0.4 mg IVP Q2MIN PRN PRN Reason: Opioid Reversal Stop: 08/05/17 23:14 Neomycin/Polymyxin/Bacitracin (Triple Antibiotic Ointment) 1 appl TP BID [facility] Stop: 08/06/17 10:16 Nicotine (Nicoderm) 21 mg TD DAILY [facility] PRN Reason: Protocol Stop: 08/06/17 00:16 Last Admin: 02/04/17 08:53 Dose: 21 mg Nitroglycerin (Nitroglycerin) 0.4 mg SL Q5MIN PRN PRN Reason: Chest Pain Stop: 08/05/17 22:50 Omeprazole (Prilosec) 20 mg PO DAILY@0730 [facility] PRN Reason: Protocol Stop: 08/06/17 08:01 Last Admin: 02/04/17 08:23 Dose: Not Given Ondansetron HCl (Zofran) 4 mg IVP Q6HR PRN; Protocol PRN Reason: Nausea Stop: 08/05/17 22:50 Oxycodone/Acetaminophen (Percocet 10/325) 1 each PO 5XD PRN PRN Reason: Moderate to Severe Pain (4-10) Stop: 08/06/17 00:01 Last Admin: 02/04/17 10:58 Dose: 1 each Microbiology 12/25/16 11:30 Right Foot Wound Culture - Final Methicillin Resistant S.aureus Laboratory Tests 02/03/17 02/03/17 02/04/17 19:15 19:15 00:49 WBC 15.0 H 20.1 H Hgb 15.7 16.3 Creatinine Lactic Acid Troponin I 0.03 02/04/17 02/04/17 02/04/17 00:49 00:49 00:49 WBC Hgb Creatinine 0.90 Lactic Acid 3.8 H Troponin I 0.02 02/04/17 02/04/17 02/04/17 04:49 04:49 11:23 WBC Hgb Creatinine Lactic Acid 3.7 H Troponin I 0.02 0.00 02/04/17 11:23 WBC Hgb Creatinine Lactic Acid 3.3 H Troponin I - Imaging and Cardiology Chest Xray: report reviewed Echo: report reviewed Cardiac cath: report reviewed - EKG Interpretation EKG results cardiology: personally reviewed (ECG with sinus rhythm with first degree AV block, HR 85.), other (Telemetry reviewed with average HR 97, sinus rhythm. Rare PVCs and rare PACs noted.) Consult Discharge Plan - Plan Referrals: Erika Mejia MD [Primary Care Provider] - 02/17/17 9:30 am <Dannie Mcneill - Last Filed: 02/05/17 13:19> Date of Encounter: 02/05/17 Time of Encounter: 20:00 Assessment and Plan Discussion w patient/family: The assessment and plan as outlined above was discussed with the patient and/or family members who expressed understanding and agreement. All questions were answered. Thank you for involving us in the care of your patient. Please call with any questions. History of Present Illness History of present illness: Mr. Bran is a 61 year old male All Systems Review: A 10-system review of systems was performed and is negative for pertinent findings except as documented above in the HPI. Physical Examination Vital Signs, Last 4 Hours Temp Pulse Resp BP Pulse Ox 02/05/17 11:29 97.8 F 78 18 151/82 94 02/05/17 11:09 18 96 Results 02/05/17 04:03 02/05/17 04:03 Lab Results 02/05/17 02/05/17 04:03 04:03 WBC 19.1 H Hgb 16.7 Hct 49.2 Plt Count 239 Sodium 133 L Potassium 4.4 Chloride 98 Carbon Dioxide 27 BUN 14 Creatinine 0.80 Glucose 302 H Calcium 8.9 Total Bilirubin 0.5 AST 9 ALT 16 Alkaline Phosphatase 75 - Attending Attestation Pt seen and examined independently, chart reviewed, essentially agree with findings documented, my evaluation as follows: IMP/Plan 1. Chest pain, atypical, has ruled out for acute myocardial necrosis by EKG and enzematic criteria, abnormal echo with wall motion abnormalites, recommend [facility]/ possible, when sepsis, would infection controlled, has been ruled out. Could be done as outpatient if pt is discharged. 2. CAD: Known moderate non-obstructive disease at [facility] 2013, has not modified lifestyle, continues high risk behaviours 3. Tobacco abuse, continues to smoke at least two packs a day against medical advice. 4. COPD - severe o2 dependent, not always compliant with O2 use 5. TU - requires CPAP, not always compliant
[2017-02-04] MEDS: Neosporin OINT 15 GM TUBE TP SCH ×2 (14:07→21:03)
--- NOTE | 2017-02-04 16:38 | Internal Med Progress Note ---
Date of Encounter: 02/04/17 Time of Encounter: 16:30 - Assessment and plan (1) Sepsis Current Visit: Yes Status: Acute Qualifiers: Sepsis type: sepsis due to unspecified organism Qualified Code(s): A41.9 - Sepsis, unspecified organism (2) COPD (chronic obstructive pulmonary disease) Current Visit: Yes Status: Chronic Qualifiers: COPD type: chronic bronchitis Chronic bronchitis type: simple Qualified Code(s): J41.0 - Simple chronic bronchitis (3) CAD (coronary artery disease) Current Visit: Yes Status: Chronic Qualifiers: Coronary Disease-Associated Artery/Lesion type: [place] artery [place] vs. transplanted heart: [place] heart Associated angina: without angina Qualified Code(s): I25.10 - Atherosclerotic heart disease of [place] coronary artery without angina pectoris (4) Facial numbness Current Visit: Yes Status: Acute (5) DM2 (diabetes mellitus, type 2) Current Visit: Yes Status: Chronic Qualifiers: Diabetes mellitus complication status: with circulatory complication Diabetes mellitus complication detail: with other circulatory complications Diabetes mellitus senior living insulin use: with senior living use Qualified Code(s) : E11.59 - Type 2 diabetes mellitus with other circulatory complications; Z79.4 - halfway (current) use of insulin (6) Hypertension Current Visit: Yes Status: Chronic Qualifiers: Hypertension type: essential hypertension Qualified Code(s): I10 - Essential (primary) hypertension (7) Obesity (BMI 30-39.9) Current Visit: Yes Status: Acute - Subjective Interval history: Mr. Beau Bran is a 61-year-old gentleman came in with right-sided facial numbness, chest pain, and dyspnea. Patient was recently released from [facility] where he was admitted for stroke workup. His past medical history is significant for COPD home O2 dependent/BiPAP TU nonobstructive CAD, CHF, diabetes hypertension dyslipidemia and tobacco abuse. His previous cardiac catheter showed CAD with [facility] 2013 with 30% stenosis proximal LAD, 40-50 % mid circumflex, 40% OM1, 30% proximal RCA, 40% mid RCA, 30% distal RC Patient was seen this morning. Discuss at [facility]. Patient is complaining of right facial numbness which has been going on for last few weeks. He is quite concerned about a stroke. Interestingly his is still smoking 1 pack per day. Really CBC CMP ordered. #1 chest pain/CAD. Troponins are negative as well as EKG. Echocardiogram showed inferior basal wall motion abnormality. Cardiology was consulted who planned LHC when his sepsis is resolved. In the meantime will keep him on beta blockers and nitrates and aspirin. We will check his serum lipids. His hemoglobin A1c is 8.8. Constant provided regarding risk stratification. #2 right facial numbness. We will keep him on aspirin and will try to get records from [place]. No focal weakness noted. No visual changes noted. Interestingly on CT head noncontrast left-sided parietal soft tissue swelling noted raising question of concussion as headache is on the right side #3 sepsis syndrome question source white count is 20,000. Urine shows positive leukocyte culture is pending. Chest x-ray is negative for pneumonia. Abdominal examination is unremarkable. Follow CBC continue IV antibiotics. #4 COPD continue nebulizer reduce his steroids 60 twice a day #5 diabetes Accu-Chek 4 times a day with sliding scale coverage will try to get better sugar control. - Constitutional Vitals: Temp Pulse Resp BP Pulse Ox 97.8 F 96 18 134/72 92 02/04/17 11:00 02/04/17 11:00 02/04/17 15:22 02/04/17 11:00 02/04/17 15:22 General appearance: Present: cooperative, mild distress, A&O X 3, obese, answers questions appropriately - Head Head exam: Present: atraumatic, normocephalic - Eye Eye exam: Present: PERRL, conjuntiva pink, sclera anicteric Pupils: Present: PERRL - Neck Neck exam general surgery: Present: supple, trachea midline. Absent: lymphadenopathy - Respiratory Respiratory exam: Present: CTAB. Absent: accessory muscle use, rales, rhonchi, wheezes - Cardiovascular Cardiovascular exam: Present: RRR, +S1, +S2. Absent: diastolic murmur, gallop, rubs, systolic murmur - GI/Abdominal GI/Abdominal exam: Present: normal bowel sounds, soft, no peritoneal signs. Absent: distended, tenderness - Extremities Exam Extremities exam: Present: warm, radial pulses palpable and symmetrical. Absent : calf tenderness, cyanotic, pedal edema - Neurological Exam Neurological exam: Present: CN II-XII intact, oriented X3, no focal deficits. Absent: pronater drift, facial droop, speech deficit - Skin Skin exam: Present: dry, intact Internal Medicine: Result - Labs CBC & Chem 7: 02/04/17 00:49 02/04/17 00:49 Labs: Cardiac Enzymes 02/04/17 02/04/17 Range/Units 04:49 11:23 Troponin I 0.02 0.00 (0-0.03) ng/mL - ABG Interpretation ABG results: PT/INR, D-dimer PT 12.8 Seconds (9.4-12.1) H 02/04/17 00:49 - Impressions Impressions Echocardiogram 02/04/17 22:49 Impressions: Mild LV systolic dysfunction, LVEF 50%. There is hypokinesis of the basal-mid inferior wall. Mild concentric left ventricular hypertrophy. Mild left ventricular diastolic dysfunction. Normal right ventricular size and function. Mildly dilated left atrium. Mild aortic stenosis. Unable to estimate RVSP due to lack of TR jet. Recommend cardiology consultation due to chest pain with wall motion abnormalities. [employer] message sent to ordering physician. Also notified cardiology consult team. Left Ventricular Wall Motion: Rest Echo Findings The mid inferior and basal inferior kowalski were hypokinetic. All other wall segments showed normal motion. Findings: Study Quality * Suboptimal echo windows. ECG Findings * Normal sinus rhythm. Left Ventricle * Mild LV systolic dysfunction, LVEF 50%. There is hypokinesis of the basal-mid inferior wall. * Normal LV chamber size. * Mild concentric left ventricular hypertrophy. * Mild left ventricular diastolic dysfunction. Right Ventricle * Normal right ventricular size and function. Left Atrium * Mildly dilated left atrium. Right Atrium * Normal right atrial size. Aorta * Normally sized aortic root. Pericardium * There is no pericardial effusion present. IVC * The IVC is not well evaluated. Aortic Valve * Mild-moderately calcified aortic valve leaflets. Valve morphology is not well visualized. * Mild aortic stenosis. * No aortic regurgitation. Mitral Valve * Normal mitral valve structure. * No mitral stenosis. * Trace mitral regurgitation. Tricuspid Valve * Normal tricuspid valve structure. * No tricuspid stenosis. * Trace tricuspid regurgitation. * Unable to estimate RVSP due to lack of TR jet. Pulmonic Valve * Pulmonic valve not well visualized. * No pulmonic stenosis. * No pulmonic regurgitation. Consult Discharge Plan - Plan Referrals: Erika Mejia MD [Primary Care Provider] - 02/17/17 9:30 am
--- NOTE | 2017-02-04 19:42 | Electrocardiograph Report ---
[address] [place], [place] [address] Test Date: 2017-02-03 Pat Name: Beau Bran Department: 102 Room: 2A33 Gender: M [employer]: : [id number] Requested By: Rosalinda Colbert Order Number: [id number] Reading MD: Luis Bhakta MD Measurements Intervals [place] Rate: 85 P: 41 TN: 214 QRS: 75 QRSD: 91 T: 89 QT: 363 QTc: 405 Interpretive Statements SINUS RHYTHM WITH FIRST DEGREE AV BLOCK INDETERMINATE AXIS INCOMPLETE RIGHT BUNDLE BRANCH BLOCK Electronically Signed On 02-04-2017 19:40:53 EDT by Luis Bhakta MD
[2017-02-04] MEDS: Nitroglycerin 0.4 MG TAB.SUBL SL PRN ×2 (20:22→21:02)
[2017-02-04] MEDS: Insulin DETEMIR 100 UNIT/ML X5UNITS SQ SCH (21:03)
[2017-02-05] MEDS: Ipratropium/Albuterol Neb 3 ML IH SCH ×6 (03:42→23:11)
[2017-02-05 04:19] LABS: Basophils % 0.2 %; Hematocrit 49.2 % (37.5-50.1); Hemoglobin 16.7 g/dL (12.9-16.9); Immature Granulocytes % 0.8 % (0-4); Lymphocytes # 0.9 K/mcL (0.6-4.6); Lymphocytes % 4.6 %; Mean Corpuscular HGB Conc 33.9 g/dL (31.6-35.5); Mean Corpuscular Hemoglobin 30.8 pg (28.0-33.3); Mean Corpuscular Volume 90.6 fL (83.0-100.0); Mean Platelet Volume 10.5 fL (9.4-12.4); Monocytes # 0.6 K/mcL (0.0-1.3); Monocytes % 3.2 %; Neutrophils # 17.4 K/mcL (1.6-8.9); Platelet Count 239 K/mcL (140-400); Red Blood Count 5.43 M/mcL (4.19-5.50); Red Cell Distribution Width 12.9 % (11.5-14.5); Segmented Neutrophils % 91.2 %
[2017-02-05 04:36] LABS: Alanine Aminotransferase 16 Units/L (0-55); Albumin 2.9 g/dL (3.5-5.0); Albumin/Globulin Ratio 0.9 (1.1-2.2); Alkaline Phosphatase 75 Units/L (38-126); Aspartate Amino Transferase 9 Units/L (5-34); BUN/Creatinine Ratio 18 (6-26); Bilirubin,Total 0.5 mg/dL (0.2-1.2); Blood Urea Nitrogen 14 mg/dL (8-26); Calcium 8.9 mg/dL (8.6-10.8); Carbon Dioxide 27 mEq/L (19-29); Chloride 98 mEq/L (98-109); Globulin 3.3 g/dL (2.4-3.5); Glucose 302 mg/dL (70-99); Osmolality,Calculated 288 (280-300); Potassium 4.4 mEq/L (3.5-4.5); Sodium 133 mEq/L (136-145); Total Protein 6.2 g/dL (6.0-8.3); eGFR For African Americans > 60 (> 60); eGFR For Non-African Americans > 60 (> 60)
[2017-02-05] MEDS: *HR* Heparin 5,000 UNIT/ML VIAL SQ SCH ×3 (04:55→22:21)
[2017-02-05] MEDS: *HR* OxyCODONE/APAP 10/325 TABLET PO PRN ×5 (05:19→22:19)
[2017-02-05] MEDS: methylPREDNISolone 125 MG/2 ML VIAL IVP SCH ×2 (05:20→15:46)
[2017-02-05] MEDS: Insulin LISPRO 300 UNITS/3 ML VIAL SQ SCH ×7 (07:37→22:15)
[2017-02-05] MEDS: Nicotine 21 MG PATCH.TD24 TD SCH (07:37)
[2017-02-05] MEDS: Aspirin Enteric Coated 81 MG Tablet PO SCH (07:39)
[2017-02-05] MEDS: Magnesium Oxide 400 MG TABLET PO SCH (07:39)
[2017-02-05] MEDS: Gabapentin 300 MG CAPSULE PO SCH ×4 (07:39→22:15)
[2017-02-05] MEDS: Levofloxacin 750 MG/150 ML 750 MG/150 ML BAG IVPB SCH (07:40)
[2017-02-05] MEDS: Neosporin OINT 15 GM TUBE TP SCH ×2 (07:40→22:21)
[2017-02-05] MEDS: Nitroglycerin 0.4 MG TAB.SUBL SL PRN ×3 (07:41→22:19)
[2017-02-05] MEDS: ALPRAZolam 0.25 MG TABLET PO SCH ×2 (12:22→17:06)
--- NOTE | 2017-02-05 16:31 | Internal Med Progress Note ---
Date of Encounter: 02/05/17 Time of Encounter: 16:28 - Assessment and plan (1) Sepsis Current Visit: Yes Status: Acute Qualifiers: Sepsis type: sepsis due to unspecified organism Qualified Code(s): A41.9 - Sepsis, unspecified organism (2) COPD (chronic obstructive pulmonary disease) Current Visit: Yes Status: Chronic Qualifiers: COPD type: chronic bronchitis Chronic bronchitis type: simple Qualified Code(s): J41.0 - Simple chronic bronchitis (3) CAD (coronary artery disease) Current Visit: Yes Status: Chronic Qualifiers: Coronary Disease-Associated Artery/Lesion type: [place] artery [place] vs. transplanted heart: [place] heart Associated angina: without angina Qualified Code(s): I25.10 - Atherosclerotic heart disease of [place] coronary artery without angina pectoris (4) Facial numbness Current Visit: Yes Status: Acute (5) DM2 (diabetes mellitus, type 2) Current Visit: Yes Status: Chronic Qualifiers: Diabetes mellitus complication status: with circulatory complication Diabetes mellitus complication detail: with other circulatory complications Diabetes mellitus care home insulin use: with care home use Qualified Code(s) : E11.59 - Type 2 diabetes mellitus with other circulatory complications; Z79.4 - FPC (current) use of insulin (6) Hypertension Current Visit: Yes Status: Chronic Qualifiers: Hypertension type: essential hypertension Qualified Code(s): I10 - Essential (primary) hypertension (7) Obesity (BMI 30-39.9) Current Visit: Yes Status: Acute - Subjective Interval history: Mr. Beau Bran is a 61-year-old gentleman came in with right-sided facial numbness, chest pain, and dyspnea. Patient was recently released from [facility] where he was admitted for stroke workup. His past medical history is significant for COPD home O2 dependent/BiPAP TU nonobstructive CAD, CHF, diabetes hypertension dyslipidemia and tobacco abuse. His previous cardiac catheter showed CAD with [facility] 2013 with 30% stenosis proximal LAD, 40-50 % mid circumflex, 40% OM1, 30% proximal RCA, 40% mid RCA, 30% distal RC Patient was seen this morning. Discuss at [facility]. Patient is complaining of right facial numbness which has been going on for last few weeks. He is quite concerned about a stroke. Interestingly his is still smoking 1 pack per day. Really CBC CMP ordered. #1 chest pain/CAD. Troponins are negative as well as EKG. Echocardiogram showed inferior basal wall motion abnormality. Cardiology was consulted who planned LHC when his sepsis is resolved. In the meantime will keep him on beta blockers and nitrates and aspirin. We will check his serum lipids. His hemoglobin A1c is 8.8. Constant provided regarding risk stratification. #2 right facial numbness. We will keep him on aspirin and will try to get records from [place]. No focal weakness noted. No visual changes noted. Interestingly on CT head noncontrast left-sided parietal soft tissue swelling noted raising question of concussion as headache is on the right side #3 sepsis syndrome question source: white count has modestly come down to 19, 000. Urine shows positive leukocyte culture is pending. Chest x-ray is negative for pneumonia. Abdominal examination is unremarkable. Follow CBC continue IV antibiotics. #4 COPD more wheezy today and increase IV steroids 60 every 8 continue nebulizers every 6 scheduled as well as Mucinex #5 diabetes Accu-Chek 4 times a day with sliding scale coverage. Blood sugars are elevated due to steroids. Patient is on sliding scale. Increase Levemir.. - Constitutional Vitals: Temp Pulse Resp BP Pulse Ox 97.6 F 98 18 132/71 94 02/05/17 16:15 02/05/17 16:15 02/05/17 16:15 02/05/17 16:15 02/05/17 16:15 General appearance: Present: cooperative, mild distress, A&O X 3, obese, answers questions appropriately - Head Head exam: Present: atraumatic, normocephalic - Eye Eye exam: Present: PERRL, conjuntiva pink, sclera anicteric Pupils: Present: PERRL - Neck Neck exam general surgery: Present: supple, trachea midline. Absent: lymphadenopathy - Respiratory Respiratory exam: Present: CTAB, wheezes. Absent: accessory muscle use, rales, rhonchi - Cardiovascular Cardiovascular exam: Present: RRR, +S1, +S2. Absent: diastolic murmur, gallop, rubs, systolic murmur - GI/Abdominal GI/Abdominal exam: Present: normal bowel sounds, soft, no peritoneal signs. Absent: distended, tenderness - Extremities Exam Extremities exam: Present: warm, radial pulses palpable and symmetrical. Absent : calf tenderness, cyanotic, pedal edema - Neurological Exam Neurological exam: Present: CN II-XII intact, oriented X3, no focal deficits. Absent: pronater drift, facial droop, speech deficit - Skin Skin exam: Present: dry, intact Internal Medicine: Result - Labs CBC & Chem 7: 02/05/17 04:03 02/05/17 04:03 Labs: Short CBC 02/05/17 Range/Units 04:03 WBC 19.1 H (4.3-11.1) K/mcL Hgb 16.7 (12.9-16.9) g/dL Hct 49.2 (37.5-50.1) % Plt Count 239 (140-400) K/mcL Neutrophils # 17.4 H (1.6-8.9) K/mcL BMP 02/05/17 04:03 Sodium 133 L Potassium 4.4 Chloride 98 Carbon Dioxide 27 BUN 14 Creatinine 0.80 Glucose 302 H Calcium 8.9 Liver Function 02/05/17 Range/Units 04:03 Total Bilirubin 0.5 (0.2-1.2) mg/dL AST 9 (5-34) Units/L ALT 16 (0-55) Units/L Alkaline Phosphatase 75 (38-126) Units/L Albumin 2.9 L (3.5-5.0) g/dL - ABG Interpretation ABG results: PT/INR, D-dimer PT 12.8 Seconds (9.4-12.1) H 02/04/17 00:49 Consult Discharge Plan - Plan Referrals: Erika Mejia MD [Primary Care Provider] - 02/17/17 9:30 am
[2017-02-05] MEDS: Benzonatate 100 MG CAPSULE PO PRN (17:06)
[2017-02-05] MEDS: Insulin DETEMIR 100 UNIT/ML X5UNITS SQ SCH ×2 (17:07→22:21)
[2017-02-06] MEDS: ALPRAZolam 0.25 MG TABLET PO SCH ×3 (00:24→12:01)
[2017-02-06] MEDS: methylPREDNISolone 125 MG/2 ML VIAL IVP SCH ×2 (00:24→08:07)
[2017-02-06] MEDS: Benzonatate 100 MG CAPSULE PO PRN ×2 (00:27→13:52)
[2017-02-06] MEDS: *HR* OxyCODONE/APAP 10/325 TABLET PO PRN ×4 (02:08→13:52)
[2017-02-06] MEDS: Ipratropium/Albuterol Neb 3 ML IH SCH ×3 (03:34→11:41)
[2017-02-06 03:53] LABS: Basophils % 0.2 %; Hematocrit 47.9 % (37.5-50.1); Hemoglobin 15.8 g/dL (12.9-16.9); Immature Granulocytes % 1.2 % (0-4); Lymphocytes # 0.8 K/mcL (0.6-4.6); Mean Corpuscular Hemoglobin 30.2 pg (28.0-33.3); Mean Corpuscular Volume 91.4 fL (83.0-100.0); Monocytes # 0.5 K/mcL (0.0-1.3); Monocytes % 2.6 %; Neutrophils # 17.5 K/mcL (1.6-8.9); Platelet Count 239 K/mcL (140-400); Red Blood Count 5.24 M/mcL (4.19-5.50); Red Cell Distribution Width 13.1 % (11.5-14.5)
[2017-02-06 04:07] LABS: Alanine Aminotransferase 17 Units/L (0-55); Albumin 2.8 g/dL (3.5-5.0); Alkaline Phosphatase 63 Units/L (38-126); Aspartate Amino Transferase 9 Units/L (5-34); BUN/Creatinine Ratio 20 (6-26); Bilirubin,Total 0.3 mg/dL (0.2-1.2); Blood Urea Nitrogen 16 mg/dL (8-26); Calcium 8.7 mg/dL (8.6-10.8); Carbon Dioxide 29 mEq/L (19-29); Chloride 96 mEq/L (98-109); Globulin 2.8 g/dL (2.4-3.5); Glucose 299 mg/dL (70-99); Osmolality,Calculated 286 (280-300); Potassium 4.8 mEq/L (3.5-4.5); Sodium 132 mEq/L (136-145); Total Protein 5.6 g/dL (6.0-8.3); eGFR For African Americans > 60 (> 60); eGFR For Non-African Americans > 60 (> 60)
[2017-02-06] MEDS: *HR* Heparin 5,000 UNIT/ML VIAL SQ SCH ×2 (05:21→13:50)
[2017-02-06] MEDS: Insulin LISPRO 300 UNITS/3 ML VIAL SQ SCH ×4 (08:03→12:01)
[2017-02-06] MEDS: Insulin DETEMIR 100 UNIT/ML X5UNITS SQ SCH (08:06)
[2017-02-06] MEDS: Neosporin OINT 15 GM TUBE TP SCH (08:08)
[2017-02-06] MEDS: Levofloxacin 750 MG/150 ML 750 MG/150 ML BAG IVPB SCH (08:08)
[2017-02-06] MEDS: Aspirin Enteric Coated 81 MG Tablet PO SCH (08:09)
[2017-02-06] MEDS: Nicotine 21 MG PATCH.TD24 TD SCH (08:10)
[2017-02-06] MEDS: Magnesium Oxide 400 MG TABLET PO SCH (08:10)
[2017-02-06] MEDS: Gabapentin 300 MG CAPSULE PO SCH ×2 (08:10→12:01)
--- NOTE | 2017-02-06 10:25 | Internal Med Progress Note ---
Date of Encounter: 02/06/17 Time of Encounter: 10:23 - Assessment and plan (1) Sepsis Current Visit: Yes Status: Acute Qualifiers: Sepsis type: sepsis due to unspecified organism Qualified Code(s): A41.9 - Sepsis, unspecified organism (2) COPD (chronic obstructive pulmonary disease) Current Visit: Yes Status: Chronic Qualifiers: COPD type: chronic bronchitis Chronic bronchitis type: simple Qualified Code(s): J41.0 - Simple chronic bronchitis (3) CAD (coronary artery disease) Current Visit: Yes Status: Chronic Qualifiers: Coronary Disease-Associated Artery/Lesion type: [place] artery [place] vs. transplanted heart: [place] heart Associated angina: without angina Qualified Code(s): I25.10 - Atherosclerotic heart disease of [place] coronary artery without angina pectoris (4) Facial numbness Current Visit: Yes Status: Acute (5) DM2 (diabetes mellitus, type 2) Current Visit: Yes Status: Chronic Qualifiers: Diabetes mellitus complication status: with circulatory complication Diabetes mellitus complication detail: with other circulatory complications Diabetes mellitus fdc insulin use: with fdc use Qualified Code(s) : E11.59 - Type 2 diabetes mellitus with other circulatory complications; Z79.4 - assisted (current) use of insulin (6) Hypertension Current Visit: Yes Status: Chronic Qualifiers: Hypertension type: essential hypertension Qualified Code(s): I10 - Essential (primary) hypertension (7) Obesity (BMI 30-39.9) Current Visit: Yes Status: Acute - Subjective Interval history: Mr. Beau Bran is a 61-year-old gentleman came in with right-sided facial numbness, chest pain, and dyspnea. Patient was recently released from [facility] where he was admitted for stroke workup. His past medical history is significant for COPD home O2 dependent/BiPAP TU nonobstructive CAD, CHF, diabetes hypertension dyslipidemia and tobacco abuse. His previous cardiac catheter showed CAD with [facility] 2013 with 30% stenosis proximal LAD, 40-50 % mid circumflex, 40% OM1, 30% proximal RCA, 40% mid RCA, 30% distal RC Patient was seen this morning. Discuss at [facility]. Patient is complaining of right facial numbness which has been going on for last few weeks. He is quite concerned about a stroke. Interestingly his is still smoking 1 pack per day. Really CBC CMP ordered. #1 chest pain/CAD. Troponins are negative as well as EKG. Echocardiogram showed inferior basal wall motion abnormality. Cardiology was consulted who planned LHC when his sepsis is resolved. In the meantime will keep him on beta blockers and nitrates and aspirin. We will check his serum lipids. His hemoglobin A1c is 8.8. Constant provided regarding risk stratification. #2 right facial numbness. We will keep him on aspirin and will try to get records from [place]. No focal weakness noted. No visual changes noted. Interestingly on CT head noncontrast left-sided parietal soft tissue swelling noted raising question of concussion as headache is on the right side #3 sepsis syndrome question source: white count still 19,000. Urine shows positive leukocyte culture is pending. Chest x-ray is negative for pneumonia. Abdominal examination is unremarkable. Follow CBC continue IV antibiotics. #4 COPD more wheezy today and increase IV steroids 60 every 8 continue nebulizers every 6 scheduled as well as Mucinex #5 diabetes Accu-Chek 4 times a day with sliding scale coverage. Blood sugars are elevated due to steroids. Patient is on sliding scale. Increase Levemir.. - Constitutional Vitals: Temp Pulse Resp BP Pulse Ox 96.9 F L 89 16 116/71 93 02/06/17 07:18 02/06/17 07:18 02/06/17 07:30 02/06/17 07:18 02/06/17 07:30 General appearance: Present: cooperative, mild distress, A&O X 3, obese, answers questions appropriately - Head Head exam: Present: atraumatic, normocephalic - Eye Eye exam: Present: PERRL, conjuntiva pink, sclera anicteric Pupils: Present: PERRL - Neck Neck exam general surgery: Present: supple, trachea midline. Absent: lymphadenopathy - Respiratory Respiratory exam: Present: CTAB, wheezes. Absent: accessory muscle use, rales, rhonchi - Cardiovascular Cardiovascular exam: Present: RRR, +S1, +S2. Absent: diastolic murmur, gallop, rubs, systolic murmur - GI/Abdominal GI/Abdominal exam: Present: normal bowel sounds, soft, no peritoneal signs. Absent: distended, tenderness - Extremities Exam Extremities exam: Present: warm, radial pulses palpable and symmetrical. Absent : calf tenderness, cyanotic, pedal edema - Neurological Exam Neurological exam: Present: CN II-XII intact, oriented X3, no focal deficits. Absent: pronater drift, facial droop, speech deficit - Skin Skin exam: Present: dry, intact Internal Medicine: Result - Labs CBC & Chem 7: 02/06/17 03:26 02/06/17 03:26 Labs: Short CBC 02/06/17 Range/Units 03:26 WBC 19.0 H (4.3-11.1) K/mcL Hgb 15.8 (12.9-16.9) g/dL Hct 47.9 (37.5-50.1) % Plt Count 239 (140-400) K/mcL Neutrophils # 17.5 H (1.6-8.9) K/mcL BMP 02/06/17 03:26 Sodium 132 L Potassium 4.8 H Chloride 96 L Carbon Dioxide 29 BUN 16 Creatinine 0.79 Glucose 299 H Calcium 8.7 Liver Function 02/06/17 Range/Units 03:26 Total Bilirubin 0.3 (0.2-1.2) mg/dL AST 9 (5-34) Units/L ALT 17 (0-55) Units/L Alkaline Phosphatase 63 (38-126) Units/L Albumin 2.8 L (3.5-5.0) g/dL - ABG Interpretation ABG results: PT/INR, D-dimer PT 12.8 Seconds (9.4-12.1) H 02/04/17 00:49 Consult Discharge Plan - Plan Instructions: Chronic Obstructive Pulmonary Disease (DC), Sepsis (DC) Referrals: Erika Mejia MD [Primary Care Provider] - 02/17/17 9:30 am
[2017-02-06 11:38] VITALS: BP 153/90
[2017-02-06] MEDS ORDERED: FLUARIX QUAD 2017-18 36MOS UP/PF 0.5 ML SYRINGE IM ONE (14:13)
--- NOTE | 2017-02-06 15:12 | Discharge Summary ---
Date of Encounter: 02/06/17 Time of Encounter: 15:03 - Discharge Diagnosis (1) Sepsis Priority: Primary Status: Acute Qualifiers: Sepsis type: sepsis due to unspecified organism Qualified Code(s): A41.9 - Sepsis, unspecified organism (2) COPD (chronic obstructive pulmonary disease) Priority: Secondary Status: Chronic Qualifiers: COPD type: chronic bronchitis Chronic bronchitis type: simple Qualified Code(s): J41.0 - Simple chronic bronchitis (3) CAD (coronary artery disease) Priority: Secondary Status: Chronic Qualifiers: Coronary Disease-Associated Artery/Lesion type: [place] artery [place] vs. 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: with snf use Qualified Code(s) : E11.59 - Type 2 diabetes mellitus with other circulatory complications; Z79.4 - retirement (current) use of insulin (6) Hypertension Priority: Secondary Status: Chronic Qualifiers: Hypertension type: essential hypertension Qualified Code(s): I10 - Essential (primary) hypertension (7) Obesity (BMI 30-39.9) Priority: Secondary Status: Acute - Discharge Medications Prescriptions: Nitroglycerin 0.4 mg SL Q5MIN PRN #40 tab.subl PRN Reason: Chest Pain ALPRAZolam [Xanax 0.25 MG Tablet] 0.25 mg PO Q6HR #10 tablet Ipratropium/Albuterol Neb [Duoneb] 3 ml IH Q6HR PRN #120 inhsol PRN Reason: Shortness Of Breath/Wheezing Cefuroxime PO [Ceftin] 500 mg PO Q12HR #20 tablet levoFLOXacin [Levaquin] 500 mg PO DAILY #7 tablet predniSONE [PredniSONE] 10 mg PO DAILY #72 tablet Home Medications: Albuterol Sulfate [Proair Hfa] 2 puff IH Q4H PRN 08/28/15 [History] Amitriptyline [Elavil] 25 mg PO HS 08/28/15 [History] Aspirin [Adult Low Dose Aspirin EC] 81 mg PO DAILY 08/28/15 [History] Budesonide/Formoterol 160/4.5 [Symbicort 160/4.5] 2 puff IH BIDR 08/28/15 [ History] Docusate Sodium [Colace] 200 mg PO BID 08/28/15 [History] Esomeprazole Magnesium [Nexium] 40 mg PO DAILY 08/28/15 [History] Gabapentin [Neurontin] 600 mg PO QID 08/28/15 [History] Insulin ASPART [Novolog Flexpen] 0 unit SQ TIDWM 08/28/15 [History] Insulin Glargine,Hum.rec.anlog [Lantus Solostar] 60 unit SQ HS 08/28/15 [History ] Ipratropium/Albuterol Sulfate [Combivent Respimat Inhal [place]] 2 puff IH BID [History] Magnesium Oxide [Mgo] 400 mg PO DAILY 08/28/15 [History] Metoprolol [Lopressor] 50 mg PO BID 08/28/15 [History] Montelukast [Singulair] 10 mg PO HS 08/28/15 [History] Oxygen 3 l IH AD 08/28/15 [History] hydroCHLOROthiazide [Hydrochlorothiazide] 25 mg PO DAILY 08/28/15 [History] metFORMIN [Glucophage] 1,000 mg PO BIDWM 08/28/15 [History] Potassium Chloride 10 meq PO BIDWM #30 tab.er.prt 09/01/15 [Rx] DULoxetine [Cymbalta] 90 mg PO DAILY 12/08/15 [History] Atorvastatin [Lipitor] 40 mg PO HS 02/03/17 [History] OxyCODONE/APAP 10/325 [Percocet 10/325 MG] 1 each PO 5XD 02/03/17 [History] ALPRAZolam [Xanax 0.25 MG Tablet] 0.25 mg PO Q6HR #10 tablet 02/06/17 [Rx] Cefuroxime PO [Ceftin] 500 mg PO Q12HR #20 tablet 02/06/17 [Rx] Ipratropium/Albuterol Neb [Duoneb] 3 ml IH Q6HR PRN #120 inhsol 02/06/17 [Rx] Nicotine Patch [Nicoderm] 21 mg TD DAILY patch.td24 02/06/17 [Rx] Nitroglycerin 0.4 mg SL Q5MIN PRN #40 tab.subl 02/06/17 [Rx] levoFLOXacin [Levaquin] 500 mg PO DAILY #7 tablet 02/06/17 [Rx] predniSONE [PredniSONE] 10 mg PO DAILY #72 tablet 02/06/17 [Rx] Allergies/Adverse Reactions: 3 Allergy/AdvReac Type Severity Reaction Status Date / Time morphine Allergy Itching Verified 04/17/16 18:53 ropinirole [From Requip] Allergy Difficulty Verified 04/17/16 18:53 Breathing Date of admission: 02/04/17 04:32 Primary care physician: Erika Mejia MD Consults: 02/04/17 13:45 Consult to Cardiology [CONS] Routine Comment: Consulting Provider: Cardiology Aide Reason for Consult: chest pain Time Notified: 13:45 Call Completed: Yes Discharging clinician: Jovany Sandhu Anticipated date of discharge: 02/06/17 - Patient Status Disposition: Home, Self-Care Condition: Good Overall status at discharge: patient is progressing back to baseline - Discharge Instructions Instructions: Chronic Obstructive Pulmonary Disease (DC), Sepsis (DC) Follow Up With: Erika Mejia MD [Primary Care Provider] - 02/17/17 9:30 am - Diet and Activity Activity: resume usual activities as tolerated Diet: advance to your usual diet, diabetic diet, low fat, low cholesterol, low salt diet Hospital course: Mr. Beau Bran is a 61-year-old gentleman came in with right-sided facial numbness, chest pain, and dyspnea. Patient was recently released from [facility] where he was admitted for stroke workup. His past medical history is significant for COPD home O2 dependent/BiPAP TU nonobstructive CAD, CHF, diabetes hypertension dyslipidemia and tobacco abuse. His previous cardiac catheter showed CAD with [facility] 2013 with 30% stenosis proximal LAD, 40-50 % mid circumflex, 40% OM1, 30% proximal RCA, 40% mid RCA, 30% distal RC Patient was seen this morning. Discuss at [facility]. Patient is complaining of right facial numbness which has been going on for last few weeks. He is quite concerned about a stroke. Interestingly his is still smoking 1 pack per day. Really CBC CMP ordered. #1 chest pain/CAD. Troponins are negative as well as EKG. Echocardiogram showed inferior basal wall motion abnormality. Cardiology was consulted who planned C when his sepsis is resolved. In the meantime will keep him on beta blockers and nitrates and aspirin. We will check his serum lipids. His hemoglobin A1c is 8.8. Constant provided regarding risk stratification. #2 right facial numbness. We will keep him on aspirin and will try to get records from [place]. No focal weakness noted. No visual changes noted. Interestingly on CT head noncontrast left-sided parietal soft tissue swelling noted raising question of concussion as headache is on the right side #3 sepsis syndrome question source: white count still 19,000. Urine shows positive leukocyte culture is pending. Chest x-ray is negative for pneumonia. Abdominal examination is unremarkable. Patient insists to leave. His culture negative but white count is is still 19,000. We explained him about the possible risk and complication and advise him to stay for another day but he wants to leave however he agreed to go to the lab and get his CBC checked and follow those with his family doctor. I suspect elevated white count is actually related to high-dose steroids. As clinically he looks pretty good and does not look in sepsis. #4 COPD wheezing improved now can switch to oral steroids and continue nebulizers every 6 scheduled as well as Mucinex #5 diabetes Accu-Chek 4 times a day with sliding scale coverage. Blood sugars are elevated due to steroids. Patient is on sliding scale. Increase Levemir.. - Time Spent with Patient Total time spent providing and/or coordinating discharge services: Greater than 30 minutes - Constitutional Vitals: Temp Pulse Resp BP Pulse Ox 97.6 F 85 16 153/90 94 02/06/17 11:37 02/06/17 11:37 02/06/17 11:37 02/06/17 11:37 02/06/17 11:37 General appearance: Present: cooperative, A&O X 3, no acute distress, obese, answers questions appropriately - Head Head exam: Present: atraumatic, normocephalic - Eye Eye exam: Present: PERRL, conjuntiva pink, sclera anicteric Pupils: Present: PERRL - Neck Neck exam general surgery: Present: supple, trachea midline. Absent: lymphadenopathy - Respiratory Respiratory exam: Present: CTAB. Absent: accessory muscle use, rales, rhonchi, wheezes Additional comments: Wheezing has gone down and now breath sounds are much better scattered wheezing - Cardiovascular Cardiovascular exam: Present: RRR, +S1, +S2. Absent: diastolic murmur, gallop, rubs, systolic murmur - GI/Abdominal GI/Abdominal exam: Present: normal bowel sounds, soft, no peritoneal signs. Absent: distended, tenderness - Extremities Exam Extremities exam: Present: warm, radial pulses palpable and symmetrical. Absent : calf tenderness, cyanotic, pedal edema - Neurological Exam Neurological exam: Present: CN II-XII intact, oriented X3, no focal deficits. Absent: pronater drift, facial droop, speech deficit - Skin Skin exam: Present: dry, intact
== END 2017-02-06 15:45 | disposition home or self-care (01) | DRG 872 ==
LOC: EMEROO 18:42 → 2ANU 18:42
PROVIDERS: ADMIT Internal Medicine Hematology & Oncology; ATTEND Internal Medicine